=== PATIENT | female | born 1985 ===

== ENCOUNTER 2017-11-03 13:09 | Inpatient (IN) | payer OTHER ==
[~2017-11-03] VITALS: Ht 166.4 cm; Wt 80.3 kg
[~2017-11-03 13:09] MED LIST: ACET-1718 PO; IBUP800T37 PO; METH0.2T5 PO; OXYC-373 PO; PREN-127 PO
[2017-11-03] MEDS ORDERED: OXYTOCIN 30 UNIT/NS 500 ML 500 ML IV PRN (15:03)
[2017-11-03] MEDS ORDERED: FAMOTIDINE(*) 20MG/50ML PREMIX 50 ML IVPB PRN (15:03)
[2017-11-03] MEDS ORDERED: DLR(*) 1000 ML BAG 1,000 ML IV PRN (15:03)
[2017-11-03] MEDS ORDERED: fentaNYL CITR 100 MCG/2 ML AMP IVP PRN (15:05)
[2017-11-03] MEDS ORDERED: cefOXitin/DEX(*) 2GM/50ML PREM 50 ML IVPB PRN (15:05)
[2017-11-03] MEDS ORDERED: LIDOCAINE 1% LOCAL 300 MG/30ML INJ PRN (15:05)
[2017-11-03] MEDS ORDERED: METOCLOPRAMIDE 10 MG/2 ML SDV IVP PRN (15:05)
[2017-11-03] MEDS ORDERED: FLUSH 10 ML SYR IVP PRN (15:05)
[2017-11-03] MEDS ORDERED: FENTANYL/ROPIVACAINE 100 ML BAG EPI PRN (15:10)
[2017-11-03] MEDS ORDERED: fentaNYL CITR 100 MCG/2 ML AMP IT PRN (15:10)
[2017-11-03] MEDS ORDERED: BUPIVACAINE 0.5% INJ 30ML VIAL EPI PRN (15:10)
[2017-11-03] MEDS ORDERED: LIDOCAINE/PF 2% 200MG/10ML AMP 200 MG/10 ML AMPUL EPI PRN (15:10)
[2017-11-03] MEDS ORDERED: LIDO/EPI 2% MPF 1:200,000 20ML EPI PRN (15:10)
[2017-11-03] MEDS ORDERED: BUPIVACAINE 0.25% MPF INJ EPI PRN (15:10)
[2017-11-03] MEDS ORDERED: EPIDURAL KEYS XX PRN (15:10)
[2017-11-03] MEDS ORDERED: ePHEDrine 25 MG/5 ML DISP.SYR IVP PRN (15:10)
[2017-11-03] MEDS ORDERED: LIDOCAINE/SOD BICARB 8.4% SYR ONE (15:32)
[2017-11-03 15:51] LABS: PLATELET COUNT, AUTOMATED 255 K/uL (150-450)
--- NOTE | 2017-11-03 16:39 | History & Physical ---
History of Present Illness Age of Patient: 32 : 4 Para or TPAL: 0030 EDC per LMP: Nov 03, 2017 Estimated Gestational Age: 40 Chief Complaint contractions History of Present Illness The patient is a 32 year old 4 para 0030 admitted at 40 weeks estimated gestational age with an estimated date of delivery 11/03/17 . Patient is admitted with complaint of contractions . No vaginal bleeding. Good movement and occasional contractions. She was evaluated for active labor. She had an uncomplicated course. Her record was reviewed. History Allergies: Coded Allergies: No Known Drug Allergies (Unverified , 03/27/16) Med Rec Home Meds Active Scripts Ibuprofen (IBUPROFEN) 800 Mg Tablet, 1 TAB PO Q8H Y for pain, #30 TAB 0 Refills TAKE WITH FOOD EVERY 8 HOURS Prov:DORIS ADKINS MD 10/19/16 Acetaminophen With Codeine # 3 (ACETAMINOPHEN-COD #3 TABLET) 1 Each Tablet, 1-2 EACH PO Q4D Y for pain, #15 TAB 0 Refills Take 1-2 tablets as needed for pain no closer than every 4 hours. Prov:DORIS ADKINS MD 10/19/16 Reported Medications Vits W-Ca,Fe,Fa(<1MG) ( VITAMINS) 1 Each Tablet, 1 EACH PO BID , TAB 10/17/16 Exam General Exam Cardiovascular: Regular Rate and Rhythm Respiratory: Clear to Auscultation Abdomen: Gravid - Non-Tender Extremities: No Edema Cervical Dialation: 5 (RN) Cervical Effacement (%): 80 Cervical Consistency: Soft Presentation: Vertex Uterine Contractions(Q min): 3 Uterine Contraction Strength: Strong Fetus Heart Tones: 150 Heart Tone Variabilty: Moderate FHT Category: I Medical Decision Making Data Points Result Diagram: 11/03/17 1538 Assessment and Plan Problems: (1) Active labor at term Assessment & Plan: will get epidural and arom when able, anticipate vaginal delivery Copies to: PATRICA LAURENT MD, JOHN MD Nov 03, 2017 16:39
[2017-11-03] MEDS: LR(*) 1000 ML BAG 1,000 ML IV PRN ×3 (17:00→21:44)
[2017-11-03 18:05] VITALS: BP 118/78; Ht 166.4 cm; Wt 80.3 kg
--- NOTE | 2017-11-03 18:12 | Labor Progress Note ---
Labor Subjective Progress Notes Subjective COMFORTABLE WITH EPIDURAL Vaginal Discharge/Fluid: Bloody Show, Clear Fluid Labor Pain: Comfortable Labor Objective Cervical Dialation: 6 Cervical Effacement (%): 100 Cervical Consistency: Soft Cervical Position: Anterior Station: +1 Presentation: Vertex Uterine Contractions(Q min): 3 Uterine Contraction Strength: Strong Fetus Heart Tones: 150 Heart Tone Variabilty: Moderate FHT Accelerations: 15X15 FHT Category: I Other Result Diagram: 11/03/17 1538 Assessment and Plan Problems: (1) Active labor at term Assessment & Plan: SROM, MAKING PROGRESS WILL MONITOR FOR CHANGE PATRICA LAURENT MD Nov 03, 2017 18:12
--- NOTE | 2017-11-03 18:38 | Anesthesia OB Pre-Anes Eval ---
History of Present Illness Anesthesia Start Date: Nov 03, 2017 Anesthesia Start Time: 17:30 OB Anesthesia Diagnosis: spontaneous labor Complications: None known EDC: Nov 03, 2017 : 4 Para: 0 Vital Signs: Vital Signs Date Time Temp Pulse Resp B/P (MAP) Pulse Ox O2 Delivery O2 Flow Rate FiO2 11/03/17 18:05 99.7 93 18 118/78 (91) 97 Room Air Pain Ratin Heart Tones: WNL Result Diagram: 11/03/17 1538 Height (Inches): 65.50 Weight (Pounds): 177 BMI Calculated: 29.00 Past Medical History Medical History: no pertinent history Surgical History: other Previous Anesthesia: general Attended [facility]birth Classes?: Yes, [facility], Other (RN lectured on anesthesia) Hx Anesthesia Reactions: No Hx Family Anesthesia Reaction: No Home Meds Reported Medications Vits W-Ca,Fe,Fa(<1MG) ( VITAMINS) 1 Each Tablet, 1 EACH PO BID , TAB 10/17/16 Discontinued Scripts Ibuprofen (IBUPROFEN) 800 Mg Tablet, 1 TAB PO Q8H Y for pain, #30 TAB 0 Refills TAKE WITH FOOD EVERY 8 HOURS Prov:DORIS ADKINS MD 10/19/16 Acetaminophen With Codeine # 3 (ACETAMINOPHEN-COD #3 TABLET) 1 Each Tablet, 1-2 EACH PO Q4D Y for pain, #15 TAB 0 Refills Take 1-2 tablets as needed for pain no closer than every 4 hours. Prov:DORIS ADKINS MD 10/19/16 Allergies: Coded Allergies: No Known Drug Allergies (Unverified , 03/27/16) Anesthesia OB ROS Neurological: No migraines/headaches, No seizures, No neuropathy Eyes ROS: contacts out, other (wearing glasses) ENT: Denies Tooth caps, Denies Loose teeth, Denies Chipped teeth, Denies Dentures, Denies Bridges, Denies Retainers, Denies Veneers, Denies Implants, Denies Tongue ring Pulmonary: No asthma, No smoker (pks/day/yrs) Airway Class: ll Cardiovascular ROS: No edema, No arrhythmia GI ROS: clear liquids Last Solids Date: Nov 03, 2017 Last Solids Time: 12:30 ROS: No Herpes, No STD(s), No Liver Disease, No Renal Disease Endocrine ROS: No diabetes, No gestational diabetes, No thyroid disorder, other Musculoskeletal ROS: No low back pain, No low back injury, No scoliosis ASA Classification: 2 Assessment and Plan Anesthesia Plan: CSE Assessment Past Medical, Surgical, Family and Obstetric Histories reviewed. Please see ACOG chart. Epidural anesthesia risks, complications and benefits explained to patient's satisfaction for labor and vaginal delivery and/or section. General anesthesia risks and benefits explained to patient's satisfaction. Questions invited, none asked. ELENA ANNE CRNA Nov 03, 2017 18:38
--- NOTE | 2017-11-03 18:43 | Procedure Note ---
Anesthetic Placement Note Anesthesia Plan: CSE Permit for Anesthesia Signed: Yes Anesthesia Technique: Patient Sitting Anesthesia Prep: Chlorhexidine Interspace: L 3-4 Local Anesthetic: 1% Lidocaine, 25 Gauge Needle Amount Local - cc's: 2 Anesthesia Needle: 17g Touhy/Schliff Anesthesia Attempts: 1 Loss of Resistance: Air Depth of LOS (cm): 4 Epidural Needle Placement: No CSF, No Blood, No Parasthesia Intrathecal Needle: 27 Gauge Pencan Cerebral Spinal Fluid: Yes, Clear Catheter Insertion (cm): 6 Catheter Type: Nobles - Spring Wound Epidural Dressing: Tegaderm, Tape, Adhesive [place] Anesthesia Tray: Lot Number ([id number]), Expiration Date (2018-08-03), Reference Number ([id number]) Anesthesia Medications: Intrathecal Dose: mcg Fentanyl (15), mg Marcaine MPF (1.75), Time (1746) Epidural Test Dose: 1.5 Lido/Epi (1:200,000), Dose - mL (2), Time (1809), Negative Epidural Loading Dose: 0.2% Ropivicaine, With Fentanyl 2mcg/ml, Dose - ml (5), Time (1811) Epidural Infusion: 0.2% Ropivicaine, With Fentanyl 2mcg/ml, Start Time: (1811) Epidural Pump Setting: Bolus Dose - mL (5), Lockout - Minutes (20), Maintenance Rate - mL/hr (6), Maximum per Hour - mL (21) Complications: None Comment: Vital signs stable. Patient comfortable and condition stable. ELENA ANNE CRNA Nov 03, 2017 18:43
--- NOTE | 2017-11-03 18:50 | Anesthesia Progress Note ---
Progress/Maintenance Anesthesia Note Date: Nov 03, 2017 Anesthesia Note Time: 18:45 Pain Intensity: 0 Pump: On Pump Rate (ML/HR): 6 Sensory Level: T-12 Motor Level: Bending Knees-Bilateral Dilatation: 7 Position: Left, Tilt Assessment and Plan Assessment Assisted to turn. Does not feel contractions, thinks she feels some "pressure" which is very mild. Able to move legs well. Encouraged to rest. ELENA ANNE CRNA Nov 03, 2017 18:50
--- NOTE | 2017-11-03 20:29 | Anesthesia Progress Note ---
Progress/Maintenance Anesthesia Note Date: Nov 03, 2017 Anesthesia Note Time: 22:15 Pain Intensity: 0 Pump: On Pump Rate (ML/HR): 6 Sensory Level: T-12 Motor Level: Bending Knees-Bilateral Dilatation: 9 Position: Left, Tilt Assessment and Plan Assessment Remains comfortable yet anxious about "feeling numb". ELENA ANNE CRNA Nov 03, 2017 20:29
--- NOTE | 2017-11-03 21:40 | Labor Progress Note ---
Labor Subjective Progress Notes Subjective feeling pressure but tolerable Vaginal Discharge/Fluid: Bloody Show Labor Pain: Mild Labor Objective Vital Signs Vital Signs Date Time Temp Pulse Resp B/P (MAP) Pulse Ox O2 Delivery O2 Flow Rate FiO2 11/03/17 18:05 99.7 93 18 118/78 (91) 97 Room Air Cervical Dialation: 10 Cervical Effacement (%): 100 Cervical Consistency: Soft Cervical Position: Anterior Station: +1 Presentation: Vertex Uterine Contractions(Q min): 3 Uterine Contraction Strength: Strong Fetus Heart Tones: 130 Heart Tone Variabilty: Moderate FHT Category: I Other Result Diagram: 11/03/17 1538 Assessment and Plan Problems: (1) Active labor at term Assessment & Plan: bradycardia after RN check but now has recovered with moderate variability and accels. Will observe and if continues cat 1 will labor down and then push PATRICA LAURENT MD Nov 03, 2017 21:40
[2017-11-03] MEDS ORDERED: ONDANSETRON 4 MG/2 ML VIAL ONE (21:53)
[2017-11-04] MEDS ORDERED: HYDROCORTISONE 2.5% CR 30GM TB PR PRN (00:45)
[2017-11-04] MEDS ORDERED: INFLUENZA VIRUS VAC 0.5 ML SYR IM ONLY ONE (00:45)
[2017-11-04] MEDS ORDERED: ACETAMINOPHEN 325 MG TAB PO PRN (00:45)
[2017-11-04] MEDS ORDERED: MEASLES,MUMP,RUBELLA VAC 0.5ML SC ONE (00:45)
[2017-11-04] MEDS ORDERED: HYDROmorphone HCL 2 MG TAB PO PRN (00:45)
[2017-11-04] MEDS ORDERED: BENZOCAINE 20% 60 ML BTL TP PRN (00:45)
[2017-11-04] MEDS ORDERED: LANOLIN OINT 7 GM TUBE TP PRN (00:45)
[2017-11-04] MEDS ORDERED: GLYCERIN/WITCH HAZEL LEAF 1 PK TOP PRN (00:45)
[2017-11-04] MEDS ORDERED: DIPHTH/TETANUS/ACEL. PERTUSSIS IM ONE (00:45)
[2017-11-04] MEDS ORDERED: MAGNESIUM HYDROXIDE* 30ML UDCP PO PRN (00:45)
--- NOTE | 2017-11-04 00:47 | OB Delivery Note ---
Delivery Note Vaginal Delivery Type: Spont. Vaginal Delivery Delivery Date: Nov 04, 2017 Delivery Time: 00:01 Estimated Gestational Age(wks): 40.1 Delivery Anesthesia: Epidural Sex: Male Infant Weight (gms): 3620 Repair Needed: Laceration, Superficial, Vaginal, Labial, 1st Degree Estimated Blood Loss: 400 Delivery Complications: Nuchal Cord Notes: SPONTANEOUS LABOR, RECEIVED EPIDURAL, PROGRESSED TO COMPLETE, PUSHED EFFECTIVELY AND DELIVERED OVER MIDLINE LACERATION. HAD SPONTANEOUS CRY AND SPONTANEOUS MOVEMENT OF ALL FOUR EXTREMITIES. 1ST DEGREE LACERATION REPAIRED WITH 3-0 VICRYL AND LABIAL LACERATION REPAIRED WITH 3-0 VICRYL. Founder And Chief Executive Officer in Attendence: Yes Copies to: PATRICA LAURENT MD, JOHN MD Nov 04, 2017 00:47
--- NOTE | 2017-11-04 00:52 | Anesthesia Progress Note ---
Progress/Maintenance Anesthesia Note Date: Nov 04, 2017 Anesthesia Note Time: 00:45 Pain Intensity: 0 Pump: Off (2350) Sensory Level: T-12 Motor Level: Bending Knees-Bilateral Position: Semi-Fowlers Drug Bolus: 0.5% Marcaine (3 ml @2350), Other (Fentenyl 85 mcgs @ 2350) Assessment and Plan Anesthesia Plan: CSE Assessment Excellent tolerance of delivery and repair. Pt. was able to push well. Patient instructed the first ambulation is to be with help of nursing staff. Instructed to preform deep knee bends at bedside before walking. Anesthesia Stop Day: Nov 04, 2017 Anesthesia Stop Time: 00:30 Epidural Catheter Removal: Removed Catheter Intact, Yes, Removed by: (Corrie Kohli CRNA) Removal Date: Nov 04, 2017 Removal Time: 00:30 ELENA KOHLI CRNA Nov 04, 2017 00:52
[2017-11-04] MEDS: IBUPROFEN 800 MG TAB PO SCH ×3 (01:57→17:43)
[2017-11-04] MEDS ORDERED: LR(*) 1000 ML BAG 1,000 ML ONE (02:51)
[2017-11-04 03:24] VITALS: BP 125/58
[2017-11-04 06:15] VITALS: BP 102/56
[2017-11-04] MEDS ORDERED: HYDR2TAB4 PO (06:46)
[2017-11-04] MEDS ORDERED: IBUP800T37 PO (06:46)
--- NOTE | 2017-11-04 06:50 | OB/GYN Discharge Summary ---
Discharge Summary Reason for Hosp/Final Diag: (1) Active labor at term Status: Resolved (2) care following vaginal delivery Hospital Course & Plan: Spontaneous labor, vaginal delivery, on day 1, Pain controlled, Tolerating diet and activity. Baby . Normal lochia. Lates Vital Signs Vital Signs Date Time Temp Pulse Resp B/P (MAP) Pulse Ox O2 Delivery O2 Flow Rate FiO2 11/04/17 06:15 97.9 16 102/56 (71) Room Air 11/04/17 03:24 96 11/03/17 18:05 97 Weight (Pounds): 177 Result Diagram: 11/03/17 1538 Condition: Improved Discharge: Home, Self Retirement Meds Active Scripts Ibuprofen (IBUPROFEN) 800 Mg Tablet, 1 TAB PO Q8H, #30 TAB 0 Refills Take with food every 8 hours. Prov:PATRICA NANCE MD 11/04/17 Hydromorphone Hcl (HYDROMORPHONE HCL) 2 Mg Tablet, 2-4 MG PO Q4H for PAIN, #20 TAB 0 Refills Prov:PATRICA NANCE MD 11/04/17 Reported Medications Vits W-Ca,Fe,Fa(<1MG) ( VITAMINS) 1 Each Tablet, 1 EACH PO BID , TAB 10/17/16 Discontinued Scripts Ibuprofen (IBUPROFEN) 800 Mg Tablet, 1 TAB PO Q8H Y for pain, #30 TAB 0 Refills TAKE WITH FOOD EVERY 8 HOURS Prov:DORIS ADKINS MD 10/19/16 Acetaminophen With Codeine # 3 (ACETAMINOPHEN-COD #3 TABLET) 1 Each Tablet, 1-2 EACH PO Q4D Y for pain, #15 TAB 0 Refills Take 1-2 tablets as needed for pain no closer than every 4 hours. Prov:DORIS ADKINS MD 10/19/16 Follow up with: Dr. Nance [phone] Follow up in: 6 wks PP or PO Discharge Diet: As Tolerates Discharge Activity: Pelvic Rest Copies to: PATRICA NANCE MD, JOHN MD Nov 04, 2017 06:50
--- NOTE | 2017-11-04 06:51 | OB/GYN Progress Note ---
OB Subjective Progress Notes Subjective Pain controlled, Tolerating diet and activity. Baby . Normal lochia. 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 Baby . Normal lochia. PATRICA LAURENT MD Nov 04, 2017 06:51
[2017-11-04 08:11] VITALS: BP 115/64
[2017-11-04] MEDS: DOCUSATE CALCIUM 240 MG CAP PO SCH ×2 (09:07→21:31)
[2017-11-04] MEDS: MULTIVITAMINS (PRENATAL) TAB PO SCH (09:07)
[2017-11-04 16:20] VITALS: BP 117/73
[2017-11-04 19:15] VITALS: BP 117/58
[2017-11-05 00:54] VITALS: BP 116/69
[2017-11-05] MEDS: IBUPROFEN 800 MG TAB PO SCH ×3 (01:02→17:19)
[2017-11-05 05:45] VITALS: BP 111/69
--- NOTE | 2017-11-05 08:46 | OB/GYN Progress Note ---
OB Subjective Progress Notes Subjective Pain controlled, Tolerating diet and activity. Baby . Normal lochia. GI: POS Flatus, NEG Nausea, NEG Vomiting : Voiding Well Pain: Mild OB Objective Physical Exam Vital Signs Date Time Temp Pulse Resp B/P (MAP) Pulse Ox O2 Delivery O2 Flow Rate FiO2 11/05/17 05:45 98.1 87 16 111/69 (83) Room Air 11/03/17 18:05 97 Cardiovascular: Regular Rate and Rhythm Respiratory: Clear to Auscultation Abdomen: Fundus Firm Extremities: No Edema Result Diagram: 11/05/17 0708 Assessment and Plan Post Day: 1 CPAS Assessment: Stable Problems: (1) Active labor at term Status: Resolved (2) care following vaginal delivery Assessment & Plan: Pain controlled, Tolerating diet and activity. Baby . Normal lochia. PATRICA LAURENT MD Nov 05, 2017 08:46
[2017-11-05] MEDS: DOCUSATE CALCIUM 240 MG CAP PO SCH (09:06)
[2017-11-05] MEDS: MULTIVITAMINS (PRENATAL) TAB PO SCH (09:06)
[2017-11-05 09:10] VITALS: BP 129/68
--- NOTE | 2017-11-05 10:43 | Anesthesia Post Eval Note ---
Anesthesia Post Eval Note Vital Signs Date Time Temp Pulse Resp B/P (MAP) Pulse Ox O2 Delivery O2 Flow Rate FiO2 11/05/17 05:45 98.1 87 16 111/69 (83) Room Air 11/03/17 18:05 97 Pt able to participate in Eval: Yes Cardiovascular Status: Satisfactory Respiratory Status: Satisfactory Pain Managment: Satisfactory PO Nausea/Vomiting: Satisfactory Temperature Management: Satisfactory Mental Status: Satisfactory, Alert, Oriented X3 Post-Op Hydration Status: Satisfactory, Tolerating PO Well, Voiding w/o Difficulty Anesthesia Type: CSE Anesthesia Tolerance: Tolerated procedure well without apparent anesthetic complications. LP site clear, no redness or edema. Denies headache or any residual paresthesia. Vital Signs Stable, Patient comfortable and condition stable. ELENA ANNE CRNA Nov 05, 2017 10:43
[2017-11-05 11:45] VITALS: BP 118/67
== END 2017-11-05 19:15 | disposition home or self-care (01) | DRG 775 ==
LOC: OBSVTOIN 13:09 → INTOOBSV 13:09 → OB 13:09
PROVIDERS: ADMIT Obstetrics & Gynecology; ATTEND Obstetrics & Gynecology
PROC: 10E0XZZ Delivery of Products of Conception, External Approach (ICD-10-PCS; principal; 2017-11-03)
PROC: 10907ZC Drainage of Amniotic Fluid, Therapeutic from Products of Conception, Via Natural or Artificial Opening (ICD-10-PCS; 2017-11-03)
PROC: 0HQ9XZZ Repair Perineum Skin, External Approach (ICD-10-PCS; 2017-11-03)
DX: O69.81X0 Labor and delivery complicated by cord around neck, without compression, not applicable or unspecified (principal); O76 Abnormality in fetal heart rate and rhythm complicating labor and delivery; O70.0 First degree perineal laceration during delivery; Z3A.40 40 weeks gestation of pregnancy; Z37.0 Single live birth
CPT/HCPCS: 36415; 85025; 85027; 86850; 86900; 86901; J2405; J3010; J7120; S0020

== ENCOUNTER → 2018-09-08 | Outpatient (CLI) | payer OTHER ==
[2017-11-03 18:05] VITALS: BMI 29.0
[~2018-09-08] MED LIST changes: +HYDR2TAB4 PO; +PROG200C16 PV
[2018-09-08 10:46] LABS: PLATELET COUNT, AUTOMATED 315 K/uL (150-450)
== END ==
LOC: LAB 09:43
PROVIDERS: ATTEND Obstetrics & Gynecology
DX: Z34.91 Encounter for supervision of normal pregnancy, unspecified, first trimester (principal)
CPT/HCPCS: 36415; 81001; 85025; 86592; 86703; 86762; 86850; 86900; 86901; 87088; 87340

== ENCOUNTER → 2018-09-22 | Outpatient (CLI) | payer OTHER ==
[2017-11-03 18:05] VITALS: BMI 29.0
== END ==
LOC: LAB 09:56
PROVIDERS: ATTEND Obstetrics & Gynecology
DX: Z11.3 Encounter for screening for infections with a predominantly sexual mode of transmission (principal)
CPT/HCPCS: 87491; 87591

== ENCOUNTER → 2018-10-08 | Outpatient (CLI) | payer OTHER ==
[2017-11-03 18:05] VITALS: BMI 29.0
== END ==
LOC: RAD 16:47
PROVIDERS: ATTEND Obstetrics & Gynecology
DX: Z02.9 Encounter for administrative examinations, unspecified (principal)

== ENCOUNTER → 2018-10-09 | Outpatient (CLI) | payer OTHER ==
[2017-11-03 18:05] VITALS: BMI 29.0
--- NOTE | 2018-10-09 16:10 | RADIOLOGY IMAGING REPORT ---
FACILITY: [facility] PATIENT NAME: Mary Ann Prescott : 1985 MR: [id number] V: [id number] EXAM DATE: ORDERING PHYSICIAN: DORIS ADKINS TECHNOLOGIST: Location: [facility] Patient: Mary Ann Prescott : 1985 Visit/Account:[id number] Date of Sevice: 10/09/2018 Transvaginal OB Ultrasound HISTORY: Known demise/patient wants recheck for heart tones COMPARISON: None. TECHNIQUE: Transvaginal imaging was performed for detailed assessment of the uterus, , and o varies. FINDINGS: Gestational sac: Single, intrauterine, and unremarkable Yolk sac: Visualized. Embryo: Visualized. Embryonic cardiac activity: No heart tones Estimated gestational age by LMP of 10 weeks and four days: Ultrasound age: 10 weeks and five days by crown-rump length Subchorionic hemorrhage: None visualized. There is a septated cystic masslike area extending from the head to the lower abdomen along the back of the fetus which may represent a possible cystic hygroma Uterus: Gravid, otherwise unremarkable. Maternal ovaries: Unremarkable. Adnexa: Negative Free pelvic fluid: None. IMPRESSION: Reconfirmation of known demise at 10 weeks and five days Cystic structure extends along the posterior aspect of the fetus from the head to the lower abdomen w hich may represent a possible cystic hygroma Report Dictated By: Nivia Mcintosh MD at 10/09/2018 4:01 PM Report E-Signed By: Nivia Mcintosh MD at 10/09/2018 4:05 PM WSN:[email or web address]
== END ==
LOC: US 13:25
PROVIDERS: ATTEND Obstetrics & Gynecology
DX: O02.1 Missed abortion (principal)
CPT/HCPCS: 76817

== ENCOUNTER 2018-10-11 07:02 | Day surgery (SDC) | payer OTHER ==
[2017-11-03 18:05] VITALS: Ht 167.6 cm; Wt 57.6 kg
[~2018-10-11] VITALS: Ht 167.6 cm; Wt 57.6 kg
[~2018-10-11 07:02] MED LIST changes: +FAMOTIDINE 20 MG TAB PO ONE; +LIDOCAINE/SOD BICARB 8.4% SYR ID ONE; +MIDAZOLAM 2 MG/2 ML VIAL IVP PRN; +NORMOSOL R SOLN(*) 1000 ML BAG 1,000 ML IV PRN
[2018-10-11] MEDS ORDERED: METOCLOPRAMIDE 10 MG/2 ML SDV ONE (07:15)
[2018-10-11] MEDS ORDERED: LIDOCAINE MPF 1% 5 ML VIAL ONE (07:15)
[2018-10-11] MEDS ORDERED: ONDANSETRON 4 MG/2 ML VIAL ONE (07:15)
[2018-10-11] MEDS ORDERED: PROPOFOL EMUL(*) 10MG/ML 20 ML 20 ML ONE (07:15)
[2018-10-11] MEDS ORDERED: DEXAMETHASONE SOD 4 MG/ML VIAL ONE (07:16)
[2018-10-11] MEDS ORDERED: fentaNYL CITR 100 MCG/2 ML AMP ONE (07:22)
[2018-10-11 07:51] LABS: PLATELET COUNT, AUTOMATED 238 K/uL (150-450)
[2018-10-11] MEDS ORDERED: KETOROLAC 30 MG/ML VIAL ONE (08:19)
[2018-10-11] MEDS ORDERED: LR(*) 1000 ML BAG 1,000 ML IV ONE (08:47)
--- NOTE | 2018-10-11 08:47 | Post Operative Note ---
Operative Note - RAW SAMPLER Operative Day Date: Oct 11, 2018 Time: 08:46 Physicians Surgeon: Tripp Anesthesia: General, [place] Diagnosis Pre-Op Diagnosis: Missed AB at 10 weeks Post-Op Diagnosis: Same Procedure Procedure(s): Suction D&C Specimen Removed:(Maybe N/A): POC Fluids Fluids: IVF: 1400cc UOP: 50cc Estimated Blood Loss: 200cc DORIS ADKINS MD Oct 11, 2018 08:47
[2018-10-11] MEDS ORDERED: IBUP800T37 PO (08:48)
--- NOTE | 2018-10-11 08:49 | Short(Outpt) Discharge Summary ---
Discharge Summary Reason for Hosp/Final Diag: (1) S/P D&C (status post dilation and curettage) Status: Acute Hospital Course & Plan: S/p suction D&C. Discharge to home. Departure Discharge to: Home, Self Care Discharge Instructions Home Meds Reported Medications Vits W-Ca,Fe,Fa(<1MG) ( VITAMINS) 1 Each Tablet, 1 EACH PO BID, TAB 10/17/16 Discontinued Scripts Progesterone,Micronized (PROMETRIUM) 200 Mg Capsule, 200 MG PV DAILY, #30 CAPSUL E 1 Refill 1 capsule vaginally QD through the 13th week in Prov:DORIS ADKINS MD 08/26/18 Follow up Referrals: IRRIGATOR OVERHEAD - [facility] Two Weeks @ [facility] with DORIS ADKINS MD Diet: Regular Activity: As Tolerated DORIS ADKINS MD Oct 11, 2018 08:49
[2018-10-11] MEDS ORDERED: METOCLOPRAMIDE 10 MG/2 ML SDV IVP PRN (08:50)
[2018-10-11] MEDS ORDERED: IBUPROFEN 800 MG TAB PO SCH (09:00)
--- NOTE | 2018-10-11 09:42 | OPERATIVE REPORT 1 ---
DELIVERY DATE: October 11, 2018 SURGEON: Ibeth Almaguer MD ANESTHESIOLOGIST: Nilson Mcallister MD ANESTHESIA: General. PREOPERATIVE DIAGNOSIS Missed at ten weeks. POSTOPERATIVE DIAGNOSIS Missed at ten weeks. PROCEDURE PERFORMED Suction dilatation and curettage. SPECIMENS Products of conception. IV FLUIDS 1400 cc. URINE OUTPUT 50 cc. ESTIMATED BLOOD LOSS 200 cc. INDICATIONS FOR PROCEDURE This patient is a 33-year-old, 5, para 1-0-4-1 who presents at ten weeks with diagnosis of a missed spontaneous . After discussing her management options, she did elect to proceed with suction dilatation and curettage. Specifically, postoperatively she would like cytogenics tested on the tissue. DESCRIPTION OF PROCEDURE The patient was properly identified and taken to the operating room. She was placed under general anesthesia and then placed in the dorsal lithotomy position and prepped and draped in the usual fashion for a sterile vaginal procedure. The bladder was drained of 50 cc of clear yellow urine. Bimanual exam confirming a ten week size introverted uterus was performed. The speculum was then placed, visualizing a cervix such, which was multiparous and without lesion. The anterior lip of the cervix was grasped with an Allis clamp and gentle traction was applied. The cervix was serially dilated to 10 mm using Hegar dilators without difficulty. Speculum was then replaced with a weighted speculum. A 10 mm suction curette was assembled and prepared with appropriate suction. The curette was advanced and after multiple passes the majority of the gestational tissue was removed. One final pass was performed with adequate cry throughout the uterine cavity. The uterus clamped down low and there was minimal bleeding. She did receive one dose of Methergine and Toradol for pain control. The specimen of products of conception was sent in saline to the lab for further evaluation. The patient tolerated this procedure well and recovered in the PACU. All sponge counts were correct at the end of the procedure. [facility]
== END 2018-10-11 09:50 | disposition home or self-care (01) ==
LOC: OR 07:02
PROVIDERS: ATTEND Obstetrics & Gynecology
DX: O02.1 Missed abortion (principal)
CPT/HCPCS: 59820; 85025; 86850; 86900; 86901; 88305; J1100; J1885; J2001; J2405; J2704; J2765; J3010